=== PATIENT | male | born 1985 | race Caucasian/White ===

== ENCOUNTER 2022-09-10 17:04 | Emergency (ER) | payer SELFPAY ==
[~2022-09-10] VITALS: Ht 175.3 cm; Wt 112.0 kg
[2022-09-10 17:15] VITALS: BP 135/78
[2022-09-10] MEDS ORDERED: FAMOTIDINE 20 MG TAB PO ONE (17:30)
[2022-09-10] MEDS ORDERED: predniSONE 20 MG TAB PO ONE (17:30)
[2022-09-10] MEDS ORDERED: diphenhydrAMINE 50 MG CAP PO ONE (17:30)
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
[2022-09-10] MEDS ORDERED: PRED20TA5 PO (18:16)
[2022-09-10] MEDS ORDERED: FAMO-90 PO (18:16)
[2022-09-10] MEDS ORDERED: LORA10TA19 PO (18:16)
[2022-09-10 18:29] VITALS: BP 133/95
--- NOTE | 2022-09-10 18:29 | NUR ---
Patient discharged with v/s stable. Written and verbal after care instructions ABOUT HIVES given and explained. Patient alert, oriented and verbalized understanding of instructions. Ambulatory with steady gait. All questions addressed prior to discharge. ID band removed. Patient advised to follow up with PMD. Rx of PEPCID, CLARITIN AND DELTASONE given. Patient educated on indication of medication including possible reaction and side effects. Opportunity to ask questions provided and answered.
== END 2022-09-10 18:29 | disposition home or self-care (01) ==
LOC: MED 17:04
DX: L50.9 Urticaria, unspecified (principal); I10 Essential (primary) hypertension; E11.9 Type 2 diabetes mellitus without complications; Z79.899 Other long term (current) drug therapy
CPT/HCPCS: 99284; J7512; Q0163